=== PATIENT | female | born 1975 | race African-American/Black ===

== ENCOUNTER 2019-10-06 08:00 | Inpatient (IN) | payer OTHER ==
[2019-10-07] MEDS ORDERED: morphine SULFATE/PF 0.5 MG/ML (2cc Syringe - QUVA) ONE (07:53)
[2019-10-07] MEDS ORDERED: PHENYLEPHRINE HCL 10 MG/1 ML SINGLE DOSE VIAL ONE (07:53)
[2019-10-07] MEDS ORDERED: ceFAZolin SODIUM 1 GM VIAL ONE ×2 (07:53→08:57)
[2019-10-07 07:59] VITALS: BMI 37.5
[2019-10-07] MEDS ORDERED: ELECTROLYTE-148 SOLN 500 ML IV SCH (08:15)
[2019-10-07] MEDS ORDERED: CITRIC ACID/SODIUM CITRATE 30 ML UNIT-DOSE CUP PO ONE (08:15)
[2019-10-07] MEDS ORDERED: ceFAZolin SODIUM 1 GM VIAL IVPB ONE (08:33)
[2019-10-07] MEDS ORDERED: ELECTROLYTE-148 SOLN 1,000 ML IV SCH (08:45)
[2019-10-07] MEDS ORDERED: OXYTOCIN 10 UNITS/ML VIAL ONE ×2 (08:54)
[2019-10-07] MEDS ORDERED: ONDANSETRON 4 MG/2 ML VIAL ONE (08:54)
[2019-10-07] MEDS ORDERED: DEXAMETHASONE SOD PHOSPHATE 4 MG/1 ML VIAL ONE (08:54)
[2019-10-07] MEDS ORDERED: MIDAZOLAM HCL 2 MG/2 ML SINGLE DOSE VIAL ONE (09:00)
[2019-10-07] MEDS ORDERED: ONDANSETRON 4 MG/2 ML VIAL IVPUSH PRN (09:52)
[2019-10-07] MEDS ORDERED: ELECTROLYTE-148 SOLN 500 ML IV ONE (09:53)
[2019-10-07] MEDS ORDERED: ACETAMINOPHEN 1000 MG/100 ML VIAL (NON FORMULARY) IVPB PRN ×2 (09:53→13:11)
[2019-10-07] MEDS ORDERED: METHYLERGONOVINE MALEATE 0.2 MG/1 ML AMP IM PRN (09:56)
[2019-10-07] MEDS ORDERED: oxyCODONE HCL 5 MG TABLET PO PRN (09:56)
[2019-10-07] MEDS ORDERED: IBUPROFEN 800 MG/8 ML IJ IVPB PRN (09:56)
[2019-10-07] MEDS ORDERED: OXYTOCIN 20 UNITS in 0.9% NS 20 UNIT/1,000 ML INFUS.BAG IV SCH (10:00)
--- NOTE | 2019-10-07 10:04 | HP ---
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: No: Alzheimer's, CVA, Dementia, Migraine, Multiple Sclerosis, Peripheral Neuropathy, Parkinson's, Seizure, Syncope, TIA, Vertigo, Other Cardiovascular: No: AFIB, Aneurysm, Aortic Insufficiency, Aortic Stenosis, CAD, CHF, Deep Vein Thrombosis, HTN, Hyperlipdemia, HI, Mitral Insufficiency, Mitral Stenosis, Murmur, Pulmonary Hypertension, Other Pulmonary: No: Asthma, Bronchitis, Cancer, COPD, O2 Dependent, Pneumonia, Previously Intubated, Pulmonary Embolus, Pulmonary Fibrosis, Sleep Apnea, Other Gastrointestinal: No: Ascites, Cancer, Constipation, Crohn's Disease, Diverticulitis, Diverticulosis, Esophageal Varices, Gastritis, GERD, GI Bleed, Hemorrhoids, Hiatal Hernia, Inflamatory Bowel Disease, Irritable Bowel Disease, Pancreatitis, Peptic Ulcer Disease, Ulcerative Colitis, Other Hepatobiliary: No: Cirrhosis, Cholelithiasis, Cholecystitis, Choledocholithiasis, Hepatitis A, Hepatitis B, Hepatitis C, Other Renal/: No: Renal Failure, Renal Inusuff, BPH, Cancer, Hematuria, Hemodialysis, Neurogenic Bladder, Renal Calculi, UTI, Other Reproductive: No: Ectopic , Endometriosis, Fibroids, PID, Polycystic Ovary Syndrome, Postmenopausal, Other ...: 10 ...Para: 4 ...Term: 3 ...: 1 ...Spon : 2 ...Induced : 1 ...Living Children: 4 ...Multiple Gestation: 0 ...LMP: 01/08/19 ...EDC by Dates: 10/15/19 Heme/Onc: No: Anemia, B12 Deficiency, Bleeding Disorder, Cancer, Current Chemotherapy, Current Radiation Therapy, Hemochromatosis, Hypercoaguable State, Myeloproliferative Synd, Sickle Cell Disease, Sickle Cell Trait, Thrombocytopenia, Other Infectious Disease: No: AIDS, C-Diff, Herpes Zoster, HIV, MRSA, STD's, Tuberculosis, VREF, Other Psych: No: Addictions, Anxiety, Bipolar, Depression, Panic, Psychosis, Schizophrenia, Other Musculoskeletal: No: Bursitis, Chronic low back pain, Hemiparesis, Hemiplegia, Osteoarthritis, Paraplegia, Other Rheumatology: No: Fibromyalgia, Gout, Lupus, Rheumatoid Arthritis, Sarcoidosis, Vasculitis, Other ENT: No: Allergic Rhinitis, Sinusitis, Other Endocrine: No: Roberts's Disease, Yolanda's Disease, Diabetes Insipidus, Diabetes Mellitus, Hyperparathyroidism, Hyperthyroidism, Hypothyroidism, Osteopenia, SIADH, Other Dermatology: No: Basal Cell, Cellulitis, Eczema, Melanoma, Psoriasis, Squamous Cell, Other - Past Surgical History Past Surgical History: Yes: Hx Myomectomy: No Hx Transabdominal Cerclage: No - Advance Directives Advance Directives: Yes: Living Will - Smoking History Smoking history: Current every day smoker Have you smoked in the past 12 months: No - Alcohol/Substance Use Hx Alcohol Use: No History of Substance Use: reports: None - Social History Usual Living Arrangement: Yes: With Significant Other Do you think of yourself as: Straight/Heterosexual ADL: Independent History of Recent Travel: No Home Medications - Allergies Allergies/Adverse Reactions: Allergies Allergy/AdvReac Type Severity Reaction Status Date / Time iodine Allergy Severe Difficulty Verified 10/07/19 07:28 Breathing - Home Medications Home Medications: Ambulatory Orders Iron 1 tab PO DAILY 10/07/19 Vitamins (Sjr) - 1 tab PO DAILY 10/07/19 Family Medical History Family History: Denies Review of Systems - Review of Systems Constitutional: reports: No Symptoms Eyes: reports: No Symptoms HENT: reports: No Symptoms Neck: reports: No Symptoms Cardiovascular: reports: No Symptoms Respiratory: reports: No Symptoms Gastrointestinal: reports: No Symptoms Genitourinary: reports: No Symptoms Breasts: reports: No Symptoms Reported Musculoskeletal: reports: No Symptoms Integumentary: reports: No Symptoms Neurological: reports: No Symptoms Endocrine: reports: No Symptoms Hematology/Lymphatic: reports: No Symptoms Psychiatric: reports: No Symptoms Physical Exam - Maternity Vital Signs: Vital Signs Temperature 97.6 F 10/07/19 07:50 Pulse Rate 86 10/07/19 07:50 Respiratory Rate 20 10/07/19 07:50 Blood Pressure 130/60 10/07/19 07:50 O2 Sat by Pulse Oximetry (%) Constitutional: Yes: Well Nourished, No Distress, Calm Eyes: Yes: WNL, Conjunctiva Clear, EOM Intact HENT: Yes: WNL, Atraumatic, Normocephalic Neck: Yes: WNL, Supple, Trachea Midline Cardiovascular: Yes: WNL, Regular Rate and Rhythm Lungs: Clear to auscultation Breast(s): Yes: WNL - Abdominal Exam/OB Number of Fetuses: Single Presentation: Vertex Contractions: Yes Regularity: Irregular Intensity: Mild/Mod Monitor Mode: External Heart Rate Location: [facility] Category: I Accelerations: Uniform Decelerations: None - Vaginal Exam/OB Vaginal Bleeding: No Speculum Exam: No Amniotic Membrane Status: Intact Amniotic Fluid: Yes: Clear Presentation: Vertex/Position Station: -2 - Physical Exam Musculoskeletal: Yes: WNL Extremities: Yes: WNL Edema: Yes Integumentary: Yes: WNL Deep Tendon Reflex Grade: Normal +2 ...Motor Strength: WNL Psychiatric: Yes: WNL, Alert, Oriented Hemorrhage Risk Assessment - Risk Factors Medium Risk Factors: Yes: Prior , uterine surgery,or multiple laparotomi es High Risk Factors: Yes: None Risk Score: 1 Risk Level: Medium Risk Assessment/Plan for repeat lt c s
--- NOTE | 2019-10-07 10:07 | OP ---
Operative Note - Note: Operative Date: 10/07/19 Pre-Operative Diagnosis: repeat lt c s Operation: repeat lt c s Findings: no adhesion Post-Operative Diagnosis: Same as Pre-op Surgeon: Suraj Garcia Roguer: Yang Page Anesthesiologist/PATTERN PAINTER: Aliza Andino Anesthesia: Spinal Estimated Blood Loss (mls): 600 (no complications ) Operative Report Dictated: Yes
[2019-10-07] MEDS ORDERED: ACETAMINOPHEN 1000 MG/100 ML VIAL (NON FORMULARY) IVPB ONE (10:11)
[2019-10-07] MEDS ORDERED: IBUPROFEN 800 MG/8 ML IJ IVPB ONE (10:18)
[2019-10-07] MEDS: IBUPROFEN 800 MG/8 ML IJ IVPB PRN ×2 (10:23→20:53)
[2019-10-07 10:26] VITALS: RESP 12
[2019-10-07 10:27] VITALS: O2SAT 100
--- NOTE | 2019-10-07 11:17 | PN ---
Progress Note (short form) - Note Progress Note: I ASSISTED AT THE REPEAT C/SECTION FOR THE ENTIRETY OF THE CASE.
[2019-10-07] MEDS: PRENATAL VITAMINS W/ FOLIC ACID TABLET (FP) PO SCH (13:36)
[2019-10-07] MEDS ORDERED: SENNOSIDES/DOCUSATE COMBO (SENNA PLUS) TABLET (UD) PO PRN (22:00)
[2019-10-08] MEDS: IBUPROFEN 800 MG/8 ML IJ IVPB PRN (06:43)
--- NOTE | 2019-10-08 07:56 | PN ---
Post Progress Note Post Day: 1 Type of Delivery: Repeat C/S Vital Signs: Vital Signs Temperature 97.8 F 10/08/19 06:37 Pulse Rate 98 H 10/08/19 06:37 Respiratory Rate 20 10/08/19 06:37 Blood Pressure 107/67 10/08/19 06:37 O2 Sat by Pulse Oximetry (%) 99 10/07/19 11:20 Breast Exam: Yes: Soft Uterus: Yes: Fundus Firm, Fundus below umbilicus, Non-tender Incision: Yes: Dressing dry and intact, Sutures intact Abdomen/GI: Yes: Abdomen soft, Passing flatus, Tolerating PO Lochia: Yes: Serosa Lochia, amount: Small Extremities: Yes: Calves non-tender Perineum: Yes: Intact Activity: Ambulating
[2019-10-08 08:37] LABS: BASO % 0.1 % (0-2.0); EOS % 0.3 % (0-4.5); HEMATOCRIT 26.3 % (32.4-45.2); HEMOGLOBIN 8.8 GM/dL (10.7-15.3); LYMPH % 16.2 % (8-40); MCH 31.1 pg (25.7-33.7); MCHC 33.4 g/dl (32.0-36.0); MEAN CELL VOLUME 93.1 fl (80-96); MEAN PLT VOLUME 10.1 fl (7.5-11.1); MONO % 6.6 % (3.8-10.2); NEUT % 76.8 % (42.8-82.8); PLATELET COUNT 144 K/MM3 (134-434); RBC 2.83 M/mm3 (3.60-5.2); RDW 13.6 % (11.6-15.6); WHITE BLOOD COUNT 10.6 K/mm3 (4.0-10.0)
[2019-10-08] MEDS: PRENATAL VITAMINS W/ FOLIC ACID TABLET (FP) PO SCH (09:12)
[2019-10-08] MEDS: ENOXAPARIN NA (PORCINE) 40 MG/0.4 ML DISP.SYRIN SQ SCH (09:12)
[2019-10-08] MEDS ORDERED: BISACODYL 10 MG SUPP.RECT RC PRN (09:56)
[2019-10-08] MEDS ORDERED: DIPHTH,PERTUSS(ACELL),TET 0.5 ML DISP.SYRIN IM ONE (10:30)
[2019-10-08] MEDS: oxyCODONE HCL 5 MG TABLET PO PRN ×3 (12:05→20:32)
[2019-10-08] MEDS: ACETAMINOPHEN 325 MG TABLET (FP) PO PRN ×3 (12:05→20:31)
[2019-10-08] MEDS: SIMETHICONE 80 MG TAB.CHEW (FP) PO PRN ×3 (12:06→20:31)
--- NOTE | 2019-10-08 12:44 | PN ---
Progress Note (short form) - Note Progress Note: POD #1 s/p c/s under spinal with duramorph. Doing well, c/o pain, just took first percocet. Encouraged patient to use pain Rx as needed. All questions answered.
--- NOTE | 2019-10-08 14:23 | OP ---
DATE OF OPERATION: 10/07/2019 PREOPERATIVE DIAGNOSIS: Repeat low transverse section. POSTOPERATIVE DIAGNOSES: Repeat low transverse section and fibroid uterus. PROCEDURE: Repeat low transverse section. SURGEON: Suraj Barron MD FIELD CANE SCALER: Yang Page MD ANESTHESIA: Spinal anesthesia. ANESTHESIOLOGIST: RYLAND Orellana BLOOD LOSS: About 600 mL. SPECIMEN: Placenta to Pathology. INDICATION: This is a 44-year-old female patient with a previous history of low transverse section, also previous history of abdominoplasty, so patient is currently 39 weeks and is taken to the OR for a repeat low transverse section. DESCRIPTION OF PROCEDURE: Patient had spinal anesthesia. After an adequate amount of spinal anesthesia was obtained the patient was placed on the operating table in supine position. Following same Pfannenstiel incision, incision was made through the skin, subcutaneous tissue until the fascia was nicked in the midline. The fascia extended bilaterally. Intraperitoneal cavity was entered. The fascia had a blue Prolene suture from the abdominoplasty which was cut and dissected away and the peritoneum was entered. No bladder flap was created. No adhesion was encountered. Baby was delivered from OP presentation. Baby was delivered to the rounder hand after umbilical; cord doubly clamped and cut. Placenta was removed and uterus was not able to be removed outside of the abdominal cavity due to the fibroid uterus and the fibroid was in the posterior fundus part, appeared to be about a 5-cm size. So we sutured the low transverse segment area with the uterus inside the abdominal cavity. Low transverse segment of the uterus was closed with single layer. Good hemostasis. No complication. Then both ovaries and fallopian tubes appeared to be within normal limits. No adhesion. Blood loss about 600 mL. Draining clear urine. Peritoneum was closed. Fascia was closed. Skin was closed with subcuticular sutures. Transferred to recovery room in stable condition. SURAJ BARRON MD [id number]
[2019-10-09] MEDS: ACETAMINOPHEN 325 MG TABLET (FP) PO PRN ×5 (00:13→21:08)
[2019-10-09] MEDS: oxyCODONE HCL 5 MG TABLET PO PRN ×2 (00:14→04:25)
[2019-10-09] MEDS: IBUPROFEN 600 MG TABLET (FP) PO PRN ×3 (08:51→21:09)
[2019-10-09] MEDS: SIMETHICONE 80 MG TAB.CHEW (FP) PO PRN ×3 (08:52→21:10)
[2019-10-09] MEDS: PRENATAL VITAMINS W/ FOLIC ACID TABLET (FP) PO SCH (11:11)
[2019-10-09] MEDS: ENOXAPARIN NA (PORCINE) 40 MG/0.4 ML DISP.SYRIN SQ SCH (11:11)
--- NOTE | 2019-10-09 16:47 | PN ---
Post Progress Note Post Day: 2 Type of Delivery: Repeat C/S Vital Signs: Vital Signs Temperature 97.6 F 10/09/19 09:00 Pulse Rate 98 H 10/09/19 09:00 Respiratory Rate 18 10/09/19 09:00 Blood Pressure 125/75 10/09/19 09:00 O2 Sat by Pulse Oximetry (%) 99 10/07/19 11:20 Breast Exam: Yes: Soft Uterus: Yes: Fundus Firm, Fundus below umbilicus, Non-tender Incision: Yes: Dressing dry and intact, Sutures intact Abdomen/GI: Yes: Abdomen soft, Passing flatus, Tolerating PO Lochia: Yes: Serosa Lochia, amount: Small Extremities: Yes: Calves non-tender Perineum: Yes: Intact Activity: Ambulating (doing well ) - Labs Labs: CBC WBC 10.6 K/mm3 (4.0-10.0) H 10/08/19 07:34 RBC 2.83 M/mm3 (3.60-5.2) L 10/08/19 07:34 Hgb 8.8 GM/dL (10.7-15.3) L 10/08/19 07:34 Hct 26.3 % (32.4-45.2) L D 10/08/19 07:34 MCV 93.1 fl (80-96) 10/08/19 07:34 MCH 31.1 pg (25.7-33.7) 10/08/19 07:34 MCHC 33.4 g/dl (32.0-36.0) 10/08/19 07:34 RDW 13.6 % (11.6-15.6) 10/08/19 07:34 Plt Count 144 K/MM3 (134-434) 10/08/19 07:34 MPV 10.1 fl (7.5-11.1) 10/08/19 07:34 Absolute Neuts (auto) 8.1 K/mm3 (1.5-8.0) H 10/08/19 07:34 Neutrophils % 76.8 % (42.8-82.8) 10/08/19 07:34 Lymphocytes % 16.2 % (8-40) 10/08/19 07:34 Monocytes % 6.6 % (3.8-10.2) 10/08/19 07:34 Eosinophils % 0.3 % (0-4.5) 10/08/19 07:34 Basophils % 0.1 % (0-2.0) 10/08/19 07:34 Nucleated RBC % 0 % (0-0) 10/08/19 07:34
--- NOTE | 2019-10-09 16:50 | DS ---
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 Vital Signs: Vital Signs Temperature 97.6 F 10/09/19 09:00 Pulse Rate 98 H 10/09/19 09:00 Respiratory Rate 18 10/09/19 09:00 Blood Pressure 125/75 10/09/19 09:00 O2 Sat by Pulse Oximetry (%) 99 10/07/19 11:20 Constitutional: Yes: Well Nourished, No Distress, Calm Eyes: Yes: WNL, Conjunctiva Clear, EOM Intact HENT: Yes: WNL, Atraumatic, Normocephalic Neck: Yes: WNL, Supple, Trachea Midline Cardiovascular: Yes: WNL, Regular Rate and Rhythm Respiratory: Yes: WNL, Regular, CTA Bilaterally Gastrointestinal: Yes: WNL, Normal Bowel Sounds, Soft ...Rectal Exam: Yes: WNL Renal/: Yes: WNL Pelvis: Yes: WNL External Genitalia: Yes: Normal Internal Exam Deferred: Yes Vaginal Exam: Yes: Normal Cervix: Yes: Normal Uterus: Yes: Normal ....Post : Yes: Uterus firm, Uterus non-tender Breast(s): Yes: WNL Musculoskeletal: Yes: WNL Extremities: Yes: WNL Edema: No Integumentary: Yes: WNL Wound/Incision: Yes: Clean/Dry, Well Approximated Neurological: Yes: WNL, Alert, Oriented ...Motor Strength: WNL Psychiatric: Yes: WNL, Alert, Oriented Labs: CBC, BMP 10/08/19 07:34 Delivery - Delivery Section: Repeat Type of Anesthesia: Spinal Episiotomy/Laceration: None Delivery, Single - Stages of Labor Date of Delivery: 10/07/19 Time of Delivery: 08:52 Time Placenta Delivered: 08:53 - Condition of Field Care Manager/Quenching Machine Operator Present: Yes Name: Christine Nogueira Gender: Female Weight: 3.629 kg Position: OP Total Hours ROM (Hrs/Mins): 1 min - 1 Minute Total Score: 9 5 Minutes Total Score: 9 - Drake Feeding Plan Initial Plan: Elected not to breastfeed exclusively throughout hospitalization Discharge Summary Problems reviewed: Yes Reason For Visit: C SECTION Procedures: Principal: repeat lt c s Other Procedures: none Hospital Course: uneventful Health Concerns: none Plan of Treatment: oob Condition: Good - Instructions Diet, Activity, Other Instructions: Physical activity Resume your normal everyday activity as tolerated no heavy lifting or exercise until seen by your surgeon. You may walk unlimited autumn of and climb stairs. You may resume driving the car when you feel safe and comfortable behind the wheel. No sexual activity as instructed. Wound care If you have a bandage, leave it on, and keep dry for 48-72 hours. After that time discard the outer bandage. If they are tapes on the skin under the out of bandage leave them in place. They will peel off in the next 7 to 10 days. Do Not Peel them off. You may shower the day after surgery. If there are tapes present on the skin, you may shower over them. Diet There are no dietary restrictions. Eat healthy, high-fiber foods. Drink 6 to 8 glasses of liquid each day. This will assist in keeping your bowels are regular. Pain management You may take Tylenol or acetaminophen or Ibuprofen (for example, Motrin, Advil etc.) from my pain prescription medication is ordered should be taken as prescribed for moderate to severe pain. Call MD for any of the following: call dr nash for 2 weeks f/u Severe pain not relieved by medication Fever of 101 or higher Excessive bleeding or drainage on dressing Inability to urinate Disposition: HOME - Home Medications Comprehensive Discharge Medication List: Ambulatory Orders Iron 1 tab PO DAILY 10/07/19 Vitamins (Sjr) - 1 tab PO DAILY 10/07/19 Prescription Drug Monitoring Program (I-STOP) results: I-STOP reviewed and no issues identified
--- NOTE | 2019-10-09 17:50 | PATH ---
Surgical Pathology Report Patient Name: ADELAIDA LYOSN Med. Rec. 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 TRIVASCULAR CORD WITH ONE TRUE KNOT. MEMBRANES WITH NO DIAGNOSTIC ABNORMALITIES. Electronically Signed Italia Zayas M.D. Gross Description The specimen is received fresh labeled placenta and is a 372gram, 20 x18 x 1.5. placenta with attached membranes and umbilical cord. The attached membranes are glistening, translucent, and insert marginally. The umbilical cord measures 56 cm. in length and averages 1.5 cm. in diameter. The cord inserts centrally, 6 centimeter to the nearest margin. One true knot is identified. Cut surface of the umbilical cord reveals 3 vessels. Sectioning reveals red-brown, spongy parenchyma. No lesions are identified. X Ray Technologist sections are submitted in three cassettes as follows: 1- membrane rolls and umbilical cord; 2-3- full thickness sections of placenta KWS/10/07/2019 sulki/10/07/2019
[2019-10-10 10:14] VITALS: BP 132/78; PULSE 94; TEMP 98.5
[2019-10-10] MEDS: PRENATAL VITAMINS W/ FOLIC ACID TABLET (FP) PO SCH (10:14)
[2019-10-10] MEDS: ENOXAPARIN NA (PORCINE) 40 MG/0.4 ML DISP.SYRIN SQ SCH (10:14)
[2019-10-10] MEDS: ACETAMINOPHEN 325 MG TABLET (FP) PO PRN (10:56)
[2019-10-10] MEDS: IBUPROFEN 600 MG TABLET (FP) PO PRN (10:57)
== END 2019-10-10 12:25 | disposition home or self-care (01) | DRG 788 ==
LOC: JLDR 10-07 07:00 → J3W 10-07 12:03
PROVIDERS: ADMIT Obstetrics & Gynecology; ATTEND Obstetrics & Gynecology
PROC: 10D00Z1 Extraction of Products of Conception, Low, Open Approach (ICD-10-PCS; principal; 2019-10-07 08:00)
DX: O34.211 Maternal care for low transverse scar from previous cesarean delivery (principal); O34.13 Maternal care for benign tumor of corpus uteri, third trimester; Z3A.39 39 weeks gestation of pregnancy; Z37.0 Single live birth
CPT/HCPCS: 36415; 85025; 88307-TC; 90715; 94760; J0131